=== PATIENT | female | born 1990 | race African-American/Black ===

== ENCOUNTER 2019-11-26 14:37 | Emergency (ER) | payer SELFPAY ==
[2019-11-26] MEDS ORDERED: Bacitracin 1 PK ONE (15:28)
== END 2019-11-26 15:30 | disposition home or self-care (01) ==
LOC: ERS 14:37
DX: L03.031 Cellulitis of right toe (principal)
CPT/HCPCS: 99283

== ENCOUNTER 2020-01-17 15:44 | Emergency (ER) | payer SELFPAY | END 2020-01-17 16:22 | disposition home or self-care (01) | LOC: ERS 15:44 | DX: K08.89 Other specified disorders of teeth and supporting structures (principal) | CPT/HCPCS: 99282 ==

== ENCOUNTER 2022-08-18 06:24 | Emergency (ER) | payer SELFPAY | END 2022-08-18 06:53 | disposition home or self-care (01) | LOC: ERS 06:24 | DX: K05.10 Chronic gingivitis, plaque induced (principal) | CPT/HCPCS: 99282 ==